=== PATIENT | male | born 1960 | race Hispanic/Latino ===

== ENCOUNTER 2023-06-07 09:04 | Day surgery (SDC) | payer OTHER, SELFPAY ==
[2023-06-07 08:58] VITALS: BP 121/77; BMI 29.1
[2023-06-07 10:38] VITALS: BP 96/68
[2023-06-07 10:45] VITALS: BP 101/71
[2023-06-07 11:00] VITALS: BP 92/60
[2023-06-07 11:11] VITALS: BP 106/53
== END 2023-06-07 11:26 | disposition home or self-care (01) ==
LOC: GI 09:04
PROVIDERS: ATTENDING PHYSICIAN Internal Medicine Gastroenterology
DX: K62.5 Hemorrhage of anus and rectum (principal); K57.30 Diverticulosis of large intestine without perforation or abscess without bleeding; K64.8 Other hemorrhoids; K62.1 Rectal polyp; K63.5 Polyp of colon
CPT/HCPCS: 45385; 45380; 88305

== ENCOUNTER → 2023-08-29 13:04 | Outpatient (REF) | payer OTHER, SELFPAY | LOC: RAD 13:04 | PROVIDERS: ATTENDING PHYSICIAN Student in an Organized Health Care Education/Training Program | DX: Z87.891 Personal history of nicotine dependence (principal) | CPT/HCPCS: 71271 ==

== ENCOUNTER → 2023-10-20 07:52 | Outpatient (REF) | payer OTHER, SELFPAY | LOC: RSP 07:52 | PROVIDERS: ATTENDING PHYSICIAN Student in an Organized Health Care Education/Training Program | DX: R06.2 Wheezing (principal); Z87.891 Personal history of nicotine dependence | CPT/HCPCS: 94060 ==